=== PATIENT | female | born 1990 | race Caucasian/White ===

== ENCOUNTER 2017-02-21 15:01 | Emergency (ER) | payer MEDICAID ==
[~2017-02-21] VITALS: Ht 165.1 cm; Wt 110.0 kg
[~2017-02-21 15:01] MED LIST: METR500T10 PO; MIREIUD I-UTERINE
[2017-02-21 15:16] VITALS: BP 127/68; PULSE 91; RESP 18; TEMP 100.3; O2SAT 100
[2017-02-21] MEDS ORDERED: SODIUM CHLOR 0.9% 1000 ML INJ 1,000 ML IV ONE ×2 (16:21→19:00)
--- NOTE | 2017-02-21 16:29 | PD ---
HPI Chief Complaint: Headache Time Seen by Provider: 16:15 Travel History International Travel<30 days: No Contact w/Intl Traveler<30days: No Traveled to known affect area: No History of Present Illness HPI Patient is a 26-year-old female presents emergency department for "migraine headache." Patient states she's never had a headache like this before. States she's been running around working feverishly according to mom. Denies any sore throat denies any abdominal pain chest pain cough sneezing. Patient states she has had some mild chills. Denies any visual changes focalized weakness. Denies any foreign travel. Denies a history of HIV or diabetes. States symptoms been going on 6 morning, severe and gradually worsening PFSH Past Medical History Hx Anticoagulant Therapy: No Diabetes: No Diminished Hearing: No ?: Not LMP: 02/11/17 Social History Alcohol Use: Yes (OCC) Tobacco Use: No Substance Use: No Allergies-Medications (Allergen,Severity, Reaction): Coded Allergies: ciprofloxacin (Verified Allergy, Severe, 02/21/17) Reported Meds & Prescriptions Reported Meds & Active Scripts Active Imitrex (Sumatriptan Succinate) 50 Mg Tab 50 Mg PO DAILY PRN If a satisfactory response has not been obtained at 2 hours, a second dose may be administered Fioricet (Vslfdlxerh-Bvmzwrcldmudp-Gkzqyare) 50-300-40 Mg Cap 1-2 Cap PO Q6H PRN 10 Days Reported Mirena (Levonorgestrel (Iud)) 20 Mcg/24 Hr Iud 52 Mg I-UTERINE ONCE Review of Systems Except as stated in HPI: all other systems reviewed are Neg Physical Exam Narrative GENERAL: Well-developed well-nourished, morbidly obese in no obvious distress but in minimal discomfort. SKIN: Focused skin assessment warm/dry. HEAD: Atraumatic. Normocephalic. EYES: Pupils equal and round. No scleral icterus. No injection or drainage. No papilledema but was limited funduscopy. ENT: No nasal bleeding or discharge. Mucous membranes pink and moist. NECK: Trachea midline. No JVD. Kernig's and Brudzinski signs negative. Full nontender range of motion of her neck. CARDIOVASCULAR: Regular rate and rhythm. No murmur appreciated. RESPIRATORY: No accessory muscle use. Clear to auscultation. Breath sounds equal bilaterally. GASTROINTESTINAL: Abdomen soft, non-tender, nondistended. Hepatic and splenic margins not palpable. MUSCULOSKELETAL: No obvious deformities. No clubbing. No cyanosis. No edema. NEUROLOGICAL: Awake and alert. Cranial nerves II through XII grossly intact and nonfocal, 5 out of 5 strength in all 4 extremity's. Cerebellar testing negative. A relates even narrow based gait. PSYCHIATRIC: Appropriate mood and affect; insight and judgment normal. Data Data Last Documented VS Vital Signs Date Time Temp Pulse Resp B/P (MAP) Pulse Ox O2 Delivery O2 Flow Rate FiO2 02/21/17 19:15 87 16 134/72 (92) 98 02/21/17 17:46 100.1 02/21/17 17:27 Room Air Orders Orders Complete Blood Count With Diff (02/21/17 16:21) Comprehensive Metabolic Panel (02/21/17 16:21) Westergren Sedimentation Rate (02/21/17 16:21) C-Reactive Protein (Crp) (02/21/17 16:21) Ct Brain W/O Iv Contrast(Rout) (02/21/17 16:21) Ecg Monitoring (02/21/17 16:21) Iv Access Insert/Monitor (02/21/17 16:21) Oximetry (02/21/17 16:21) Sodium Chloride 0.9% Flush (Ns Flush) (02/21/17 16:30) Acetaminophen (Tylenol) (02/21/17 16:30) Diphenhydramine Inj (Benadryl Inj) (02/21/17 16:30) Metoclopramide Inj (Reglan Inj) (02/21/17 16:30) Sodium Chlor 0.9% 1000 Ml Inj (Ns 1000 M (02/21/17 16:21) Influenzae A/B Antigen (02/21/17 16:56) Group A Rapid Strep Screen (02/21/17 16:56) Ed Urine Pregnancytest Poc (02/21/17 17:43) Strep Culture (Group A) (02/21/17 17:25) Wdud-Llohn-Evdx 325-50-40 Mg (Fioricet 3 (02/21/17 18:15) Sumatriptan Inj (Imitrex Inj) (02/21/17 18:15) Sodium Chlor 0.9% 1000 Ml Inj (Ns 1000 M (02/21/17 19:00) Labs Laboratory Tests Test 02/21/17 16:35 White Blood Count 9.6 TH/MM3 Red Blood Count 4.84 MIL/MM3 Hemoglobin 13.2 GM/DL Hematocrit 39.1 % Mean Corpuscular Volume 80.9 FL Mean Corpuscular Hemoglobin 27.2 PG Mean Corpuscular Hemoglobin Concent 33.6 % Red Cell Distribution Width 11.7 % Platelet Count 318 TH/MM3 Mean Platelet Volume 7.7 FL Neutrophils (%) (Auto) 82.2 % Lymphocytes (%) (Auto) 12.9 % Monocytes (%) (Auto) 4.3 % Eosinophils (%) (Auto) 0.4 % Basophils (%) (Auto) 0.2 % Neutrophils # (Auto) 8.0 TH/MM3 Lymphocytes # (Auto) 1.2 TH/MM3 Monocytes # (Auto) 0.4 TH/MM3 Eosinophils # (Auto) 0.0 TH/MM3 Basophils # (Auto) 0.0 TH/MM3 CBC Comment DIFF FINAL Differential Comment Erythrocyte Sedimentation Rate 17 mm/hr Blood Urea Nitrogen 10 MG/DL Creatinine 0.83 MG/DL Random Glucose 99 MG/DL Total Protein 7.5 GM/DL Albumin 3.6 GM/DL Calcium Level 8.8 MG/DL Alkaline Phosphatase 68 U/L Aspartate Amino Transf (AST/SGOT) 12 U/L Alanine Aminotransferase (ALT/SGPT) 18 U/L Total Bilirubin 0.4 MG/DL Sodium Level 139 MEQ/L Potassium Level 4.0 MEQ/L Chloride Level 104 MEQ/L Carbon Dioxide Level 27.5 MEQ/L Anion Gap 8 MEQ/L Estimat Glomerular Filtration Rate 83 ML/MIN C-Reactive Protein 1.50 MG/DL [facility] Medical Decision Making Medical Screen Exam Complete: Yes Emergency Medical Condition: Yes Differential Diagnosis Headache, viral illness, elevated temperature, meningitis is possible. Narrative Course Patient roomed emergency department, given Benadryl and Reglan initially this did provide some relief in her headache but not complete relief. Was given Imitrex and Fioricet and this had complete relief of her headache. Patient does not have any nuchal signs, appears well and is low risk for meningitis. Basic labs including ESR CRP CBC and CMP are reassuring. test negative. CT head negative. Discussed with the patient the my index of suspicion is quite low for meningitis however cannot completely exclude. I discussed with her the risks benefits competitions and alternatives of lumbar puncture at this time she elects to defer this. At this point my index is suspicion is of suspicion is so low that I do not think she warrants admission to the hospital nor treatment. I discussed symptomatic management home and returned ED criteria. Diagnosis Primary Impression: Headache Qualified Codes: R51 - Headache Referrals: [facility] Additional Instructions: Follow-up with her primary care physician or the [facility]. Med/Other Pt SpecificInfo: Prescription(s) given Scripts Sumatriptan (Imitrex) 50 Mg Tab 50 MG PO DAILY Y for MIGRAINE HEADACHE, #10 TAB 0 Refills If a satisfactory response has not been obtained at 2 hours, a second dose may be administered Prov: Jose Luis Cornejo MD 02/21/17 Lmljumxorl-Rnciwzxrrqogi-Xeywronj (Fioricet) 50-300-40 Mg Cap 1-2 CAP PO Q6H Y for HEADACHE for 10 Days, CAP 0 Refills Prov: Jose Luis Cornejo MD 02/21/17 Disposition: 01 DISCHARGE HOME Condition: Stable Jose Luis Cornejo MD Feb 21, 2017 16:28
[2017-02-21 16:30] VITALS: BP 121/68; PULSE 89; RESP 16; O2SAT 100
[2017-02-21] MEDS ORDERED: ACETAMINOPHEN 325 MG TAB PO ONE (16:30)
[2017-02-21] MEDS ORDERED: diphenhydrAMINE HCL 50 MG/ML VIAL IVP ONE (16:30)
[2017-02-21] MEDS ORDERED: METOCLOPRAMIDE HCL 10 MG/2 ML VIAL IVP ONE (16:30)
[2017-02-21] MEDS ORDERED: SODIUM CHLORIDE 0.9% FLUSH 10 ML FLUSH IVF PRN (16:30)
[2017-02-21 16:55] LABS: BASOPHIL % 0.2 % (0.0-2.0); EOSINOPHIL % 0.4 % (0.0-4.0); HEMATOCRIT 39.1 % (35.0-46.0); HEMO FLAGS DIFF FINAL; LYMPH % 12.9 % (9.0-44.0); LYMPHOCYTE # 1.2 TH/MM3 (1.0-4.8); MEAN CELL VOLUME 80.9 FL (80.0-100.0); MEAN CORPUSCULAR HEMOGLOBIN 27.2 PG (27.0-34.0); MEAN CORPUSCULAR HGB CONC 33.6 % (32.0-36.0); MONO % 4.3 % (0.0-8.0); NEUT % 82.2 % (16.0-70.0); PLATELET COUNT 318 TH/MM3 (150-450); RED BLOOD COUNT 4.84 MIL/MM3 (4.00-5.30); RED CELL DISTRIBUTION WIDTH 11.7 % (11.6-17.2); WHITE BLOOD COUNT 9.6 TH/MM3 (4.0-11.0)
--- NOTE | 2017-02-21 17:00 | RADRPT ---
EXAM DATE/TIME: 02/21/2017 16:47 [facility] COMPARISON: No previous studies available for comparison. INDICATIONS : Headache, weakness. RADIATION DOSE: 59.89 CTDIvol (mGy) MEDICAL HISTORY : None SURGICAL HISTORY : None. ENCOUNTER: Initial ACUITY: 2 days PAIN SCALE: 10/10 LOCATION: Bilateral cranial TECHNIQUE: Multiple contiguous axial images were obtained of the head. Using automated exposure control and adj ustment of the mA and/or kV according to patient size, radiation dose was kept as low as reasonably a chievable to obtain optimal diagnostic quality images. DICOM format image data is available electro nically for review and comparison. FINDINGS: CEREBRUM: The ventricles are normal for age. No evidence of midline shift, mass lesion, hemorrhage or acute in farction. No extra-axial fluid collections are seen. POSTERIOR FOSSA: The cerebellum and brainstem are intact. The 4th ventricle is midline. The cerebellopontine angle i s unremarkable. EXTRACRANIAL: The visualized portion of the orbits is intact. SKULL: The calvaria is intact. No evidence of skull fracture. CONCLUSION: Negative noncontrast CT brain. Quintin Shah MD on February 21, 2017 at 16:58 Board Certified Radiologist. This report was verified electronically.
[2017-02-21 17:06] LABS: CHLORIDE 104 MEQ/L (98-107); SODIUM (NA) 139 MEQ/L (136-145)
[2017-02-21 17:11] LABS: ANION GAP 8 MEQ/L (5-15); BICARBONATE 27.5 MEQ/L (21.0-32.0); BLOOD UREA NITROGEN 10 MG/DL (7-18)
[2017-02-21 17:14] LABS: ALT (GPT) 18 U/L (10-53); AST (GOT) 12 U/L (15-37); GLOMERULAR FILTRATION RATE 83 ML/MIN (>89)
[2017-02-21 17:15] LABS: TOTAL BILIRUBIN ADULT 0.4 MG/DL (0.2-1.0)
[2017-02-21 17:17] LABS: ALKALINE PHOSPHATASE 68 U/L (45-117)
[2017-02-21 17:20] VITALS: RESP 16; O2SAT 100
[2017-02-21 17:27] VITALS: BP 117/65; PULSE 95; RESP 16; O2SAT 100
[2017-02-21 17:46] VITALS: TEMP 100.1
[2017-02-21] MEDS ORDERED: ACETAMIN 325 MG/BUTALBITAL 50 MG/CAFFEINE 40 MG TAB PO ONE (18:15)
[2017-02-21] MEDS ORDERED: SUMAtriptan INJ 6 MG/0.5 ML VIAL SQ ONE (18:15)
[2017-02-21] MEDS ORDERED: BUTA1CAP PO (19:06)
[2017-02-21] MEDS ORDERED: IMIT50TA PO (19:14)
[2017-02-21 19:15] VITALS: BP 134/72
== END 2017-02-21 19:24 | disposition home or self-care (01) ==
LOC: PHED 15:01
DX: R51 Headache (principal); R68.83 Chills (without fever)
CPT/HCPCS: 70450; 80053; 84703; 85025; 85652; 86140; 87081; 87804; 87880; 96361; 96372; 96374; 96375; 99285; J1200; J2765; J3030; J7030

== ENCOUNTER 2017-05-03 13:20 | Emergency (ER) | payer MEDICAID ==
[~2017-05-03] VITALS: Ht 165.1 cm; Wt 108.9 kg
[~2017-05-03 13:20] MED LIST changes: -METR500T10 PO; +NUVAMIS VAGINAL
[2017-05-03 13:28] VITALS: BP 156/68; PULSE 86; RESP 16; TEMP 99; O2SAT 99
--- NOTE | 2017-05-03 13:49 | PD ---
HPI Chief Complaint: Pain Medicine Physician Problem/Complaint Time Seen by Provider: 13:47 Travel History International Travel<30 days: No Contact w/Intl Traveler<30days: No Traveled to known affect area: No History of Present Illness HPI Patient presents with complaints of vaginal bleeding and lower pelvic pain. Reports removal of an IUD on Thursday without appropriate instrumentation per patient. Cramping and bleeding started on Thursday. Reports PCP who requested she come to the emergency room for ultrasound. PFS Past Medical History Medical History: Denies Significant Hx Hx Anticoagulant Therapy: No Diabetes: No Diminished Hearing: No Immunizations Current: Yes ?: Not LMP: mirena removed thursday Past Surgical History Surgical History: No Previous Surgery Social History Alcohol Use: Yes (OCC) Tobacco Use: No (NEVER) Substance Use: No Allergies-Medications (Allergen,Severity, Reaction): Coded Allergies: ciprofloxacin (Verified Allergy, Severe, 05/03/17) Reported Meds & Prescriptions Reported Meds & Active Scripts Active Nuvaring Vaginal Insert (Etonogestrel-Ethinyl Estradiol Vaginal Insert) 0.120- 0.015 Mg/24 Hr Vagring 1 Applic VAGINAL DIRECTED Review of Systems General / Constitutional: No: Fever Eyes: No: Visual changes HENT: No: Headaches Cardiovascular: No: Chest Pain or Discomfort Respiratory: No: Shortness of Breath Gastrointestinal: No: Abdominal Pain Genitourinary: Positive: Vaginal Bleeding, No: Dysuria Musculoskeletal: No: Pain Skin: No Rash Neurologic: No: Weakness Psychiatric: No: Depression Endocrine: No: Polydipsia Hematologic/Lymphatic: No: Easy Bruising Physical Exam Narrative GENERAL: Well-nourished, well-developed patient. SKIN: Focused skin assessment warm/dry. HEAD: Normocephalic. EYES: No scleral icterus. No injection or drainage. NECK: Supple, trachea midline. No JVD or lymphadenopathy. CARDIOVASCULAR: Regular rate and rhythm without murmurs, gallops, or rubs. RESPIRATORY: Breath sounds equal bilaterally. No accessory muscle use. GASTROINTESTINAL: Abdomen soft, non-tender, nondistended. MUSCULOSKELETAL: No cyanosis, or edema. BACK: Nontender without obvious deformity. No CVA tenderness. Pelvic exam revealed vaginal mucosa pink moist and healthy in appearance, cervix visualized and bleeding is coming from the os, bleeding was light Data Data Last Documented VS Vital Signs Date Time Temp Pulse Resp B/P (MAP) Pulse Ox O2 Delivery O2 Flow Rate FiO2 05/03/17 15:30 16 05/03/17 13:28 99.0 86 156/68 (97) 99 Orders Orders Us Pelvis Comp W Doppler (05/03/17 ) MDM Medical Decision Making Medical Screen Exam Complete: Yes Emergency Medical Condition: Yes Differential Diagnosis Uterine trauma, retained uterine products, uterine contraction, endometriosis Narrative Course Assessment and plan discussed with mother and daughter at bedside. Last 72 hours Impressions Pelvis Ultrasound 05/03/17 0000 Signed Impressions: Service Date/Time: Wednesday, May 03, 2017 14:55 - CONCLUSION: Minimal free fluid. The uterus and ovaries appear normal. No IUP is seen. Jayant Adair MD Diagnosis Primary Impression: DUB (dysfunctional uterine bleeding) Patient Instructions: General Instructions Additional Instructions: Warm heat for cramping, Motrin or Tylenol for pain, follow-up with PCP/LPN CMA, return to emergency with any onset of new symptoms. Med/Other Pt SpecificInfo: No Meds Exist/No RX given Disposition: 01 DISCHARGE HOME Condition: Good Saroj Mcmullen MD May 03, 2017 13:49
--- NOTE | 2017-05-03 16:37 | RADRPT ---
EXAM DATE/TIME: 05/03/2017 14:55 [facility] COMPARISON: No previous studies available for comparison. INDICATIONS : Pelvic pain and bleeding. MEDICAL HISTORY : Irritable bowel syndrome as child. Anemia. Urinary tract infection. SURGICAL HISTORY : None. ENCOUNTER: Initial ACUITY: 1 day PAIN SCORE: 4/10 LOCATION: Bilateral pelvis MEASUREMENTS: UTERUS: 9.7 x 6.4 x 5.1 cm ENDOMETRIAL STRIPE: 2 mm RIGHT OVARY: 2.8 x 2.5 x 2.1 cm LEFT OVARY: 2.9 x 1.7 x 1.6 cm FINDINGS: UTERUS: The myometrium has homogeneous echotexture without mass. RIGHT OVARY: Ovary contains no mass or significant cystic lesion. Arterial flow is seen in the ovary. LEFT OVARY: Ovary contains no mass or significant cystic lesion. Arterial flow is seen in the ovary. MISCELLANEOUS: There is a minimal amount of free fluid seen. CONCLUSION: Minimal free fluid. The uterus and ovaries appear normal. No IUP is seen. Jayant Adair MD on May 03, 2017 at 16:30 Board Certified Radiologist. This report was verified electronically.
[2017-05-03 16:59] VITALS: BP 124/70
[2017-05-05] MEDS ORDERED: METR1TAB76 PO (09:35)
[2017-05-05] MEDS ORDERED: DIFL150T PO (09:35)
== END 2017-05-03 17:08 | disposition home or self-care (01) ==
LOC: PHED 13:20
DX: N93.8 Other specified abnormal uterine and vaginal bleeding (principal); Z72.89 Other problems related to lifestyle
CPT/HCPCS: 76856; 93975; 99284

== ENCOUNTER 2017-10-21 15:36 | Emergency (ER) | payer MEDICAID, OTHER ==
[~2017-10-21] VITALS: Ht 165.1 cm; Wt 111.6 kg
[~2017-10-21 15:36] MED LIST changes: +DIFL150T PO; +METR1TAB76 PO; -MIREIUD I-UTERINE
[2017-10-21 15:41] VITALS: BP 135/69; PULSE 104; RESP 18; TEMP 99.6; O2SAT 96
--- NOTE | 2017-10-21 16:26 | PD ---
HPI Chief Complaint: GI Complaint Time Seen by Provider: 16:13 Travel History International Travel<30 days: No Contact w/Intl Traveler<30days: No Traveled to known affect area: No History of Present Illness HPI This 26-year-old female says she been sick for the last 4 days. She has been having vomiting and diarrhea. She feels bloated at times. She says there is no chance of . She has been having very watery stool. This illness started 2 days after she finished a course of Augmentin which she had taken before perforated eardrum. There has been no travel. PFSH Past Medical History Hx Anticoagulant Therapy: No Diabetes: No Diminished Hearing: No Immunizations Current: Yes ?: Not LMP: NUVA RING-NO CYCLE Social History Alcohol Use: Yes (OCC) Tobacco Use: No (NEVER) Substance Use: No Allergies-Medications (Allergen,Severity, Reaction): Coded Allergies: ciprofloxacin (Verified Allergy, Severe, 10/21/17) Reported Meds & Prescriptions Reported Meds & Active Scripts Active Diflucan (Fluconazole) 150 Mg Tab 150 Mg PO ONCE take one tablet after finishing course of flagyl, may repeat dose in 3 days if symptoms persist Metronidazole 500 Mg Tab 500 Mg PO BID Nuvaring Vaginal Insert (Etonogestrel-Ethinyl Estradiol Vaginal Insert) 0.120- 0.015 Mg/24 Hr Vagring 1 Applic VAGINAL DIRECTED Review of Systems General / Constitutional: Positive: Chills, No: Fever Eyes: No: Diploplia, Blurred Vision HENT: No: Headaches, Vertigo Cardiovascular: No: Chest Pain or Discomfort, Palpitations Respiratory: No: Cough, Shortness of Breath Gastrointestinal: Positive: Nausea, Vomiting, Diarrhea Genitourinary: No: Urgency, Frequency Musculoskeletal: No: Myalgias, Arthralgias Skin: No Rash, No Itching Neurologic: Positive: Weakness Hematologic/Lymphatic: No: Easy Bruising Physical Exam Narrative GENERAL: Well-developed female SKIN: Focused skin assessment warm/dry. HEAD: Atraumatic. Normocephalic. EYES: Pupils equal and round. No scleral icterus. No injection or drainage. ENT: No nasal bleeding or discharge. Mucous membranes pink and moist. NECK: Trachea midline. No JVD. CARDIOVASCULAR: Regular rate and rhythm. No murmur appreciated. RESPIRATORY: No accessory muscle use. Clear to auscultation. Breath sounds equal bilaterally. GASTROINTESTINAL: Abdomen soft, non-tender, nondistended. Hepatic and splenic margins not palpable. MUSCULOSKELETAL: No obvious deformities. No clubbing. No cyanosis. No edema. NEUROLOGICAL: Awake and alert. No obvious cranial nerve deficits. Motor grossly within normal limits. Normal speech. PSYCHIATRIC: Appropriate mood and affect; insight and judgment normal. Data Data Last Documented VS Vital Signs Date Time Temp Pulse Resp B/P (MAP) Pulse Ox O2 Delivery O2 Flow Rate FiO2 10/21/17 15:41 99.6 104 18 135/69 (91) 96 Orders Orders Complete Blood Count With Diff (10/21/17 16:23) Comprehensive Metabolic Panel (10/21/17 16:23) Enteric Path (Stool) (10/21/17 16:23) C Diff Toxin Pcr (10/21/17 16:23) Sodium Chlor 0.9% 1000 Ml Inj (Ns 1000 M (10/21/17 16:30) Sodium Chlor 0.9% 1000 Ml Inj (Ns 1000 M (10/21/17 16:30) Ondansetron Inj (Zofran Inj) (10/21/17 16:30) Labs Laboratory Tests Test 10/21/17 16:30 White Blood Count 8.5 TH/MM3 Red Blood Count 4.59 MIL/MM3 Hemoglobin 12.4 GM/DL Hematocrit 36.9 % Mean Corpuscular Volume 80.4 FL Mean Corpuscular Hemoglobin 27.0 PG Mean Corpuscular Hemoglobin Concent 33.6 % Red Cell Distribution Width 11.7 % Platelet Count 327 TH/MM3 Mean Platelet Volume 7.7 FL Neutrophils (%) (Auto) 69.6 % Lymphocytes (%) (Auto) 22.2 % Monocytes (%) (Auto) 5.7 % Eosinophils (%) (Auto) 2.3 % Basophils (%) (Auto) 0.2 % Neutrophils # (Auto) 5.9 TH/MM3 Lymphocytes # (Auto) 1.9 TH/MM3 Monocytes # (Auto) 0.5 TH/MM3 Eosinophils # (Auto) 0.2 TH/MM3 Basophils # (Auto) 0.0 TH/MM3 CBC Comment DIFF FINAL Differential Comment Blood Urea Nitrogen 7 MG/DL Creatinine 0.74 MG/DL Random Glucose 92 MG/DL Total Protein 6.9 GM/DL Albumin 2.8 GM/DL Calcium Level 8.2 MG/DL Alkaline Phosphatase 60 U/L Aspartate Amino Transf (AST/SGOT) 10 U/L Alanine Aminotransferase (ALT/SGPT) 15 U/L Total Bilirubin 0.2 MG/DL Sodium Level 142 MEQ/L Potassium Level 3.5 MEQ/L Chloride Level 109 MEQ/L Carbon Dioxide Level 26.1 MEQ/L Anion Gap 7 MEQ/L Estimat Glomerular Filtration Rate 95 ML/MIN MDM Medical Decision Making Medical Screen Exam Complete: Yes Emergency Medical Condition: Yes Medical Record Reviewed: Yes Differential Diagnosis Differential includes enteritis, C. difficile, gastroenteritis Narrative Course White count is 8000. Patient has been sick for 4-5 days we will initiate a trial of Flagyl. She will also be given Zofran for nausea. She is stable for discharge Diagnosis Primary Impression: Enteritis Scripts Ondansetron Odt (Zofran Odt) 4 Mg Tab 4 MG SL Q6HR Y for Nausea/Vomiting, #10 TAB 0 Refills Prov: Robert Mcclelland MD 10/21/17 Metronidazole (Flagyl) 500 Mg Tab 500 MG PO TID for Infection for 7 Days, TAB 0 Refills Prov: Robert Mcclelland MD 10/21/17 Disposition: DISCHARGE HOME Condition: Stable Robert Mcclelland MD October 21, 2017 16:26
[2017-10-21] MEDS ORDERED: ONDANSETRON HCL 4 MG/2 ML VIAL IV PUSH ONE (16:30)
[2017-10-21] MEDS ORDERED: SODIUM CHLOR 0.9% 1000 ML INJ 1,000 ML IV ONE ×2 (16:30)
[2017-10-21 16:51] LABS: AUTOMATED NEUTROPHIL # 5.9 TH/MM3 (1.8-7.7); BASOPHIL % 0.2 % (0.0-2.0); EOSINOPHIL # 0.2 TH/MM3 (0-0.4); EOSINOPHIL % 2.3 % (0.0-4.0); HEMATOCRIT 36.9 % (35.0-46.0); HEMOGLOBIN 12.4 GM/DL (11.6-15.3); LYMPH % 22.2 % (9.0-44.0); LYMPHOCYTE # 1.9 TH/MM3 (1.0-4.8); MEAN CELL VOLUME 80.4 FL (80.0-100.0); MEAN CORPUSCULAR HGB CONC 33.6 % (32.0-36.0); MEAN PLATELET VOLUME 7.7 FL (7.0-11.0); MONO % 5.7 % (0.0-8.0); MONOCYTE # 0.5 TH/MM3 (0-0.9); NEUT % 69.6 % (16.0-70.0); PLATELET COUNT 327 TH/MM3 (150-450); RED BLOOD COUNT 4.59 MIL/MM3 (4.00-5.30); RED CELL DISTRIBUTION WIDTH 11.7 % (11.6-17.2); WHITE BLOOD COUNT 8.5 TH/MM3 (4.0-11.0)
[2017-10-21 17:04] LABS: CHLORIDE 109 MEQ/L (98-107); SODIUM (NA) 142 MEQ/L (136-145)
[2017-10-21 17:06] LABS: CALCIUM 8.2 MG/DL (8.5-10.1)
[2017-10-21 17:07] LABS: ALBUMIN 2.8 GM/DL (3.4-5.0); BICARBONATE 26.1 MEQ/L (21.0-32.0); BLOOD UREA NITROGEN 7 MG/DL (7-18); GLUCOSE,RANDOM 92 MG/DL (74-106)
[2017-10-21 17:10] LABS: ALT (GPT) 15 U/L (10-53); AST (GOT) 10 U/L (15-37); CREATININE 0.74 MG/DL (0.50-1.00); GLOMERULAR FILTRATION RATE 95 ML/MIN (>89)
[2017-10-21 17:12] LABS: TOTAL BILIRUBIN ADULT 0.2 MG/DL (0.2-1.0); TOTAL PROTEIN 6.9 GM/DL (6.4-8.2)
[2017-10-21 17:13] LABS: ALKALINE PHOSPHATASE 60 U/L (45-117)
[2017-10-21] MEDS ORDERED: METR-1 PO (17:47)
[2017-10-21] MEDS ORDERED: ZOFR4TAB3 SL (17:47)
[2017-10-21 18:40] VITALS: BP 120/65
== END 2017-10-21 18:35 | disposition home or self-care (01) ==
LOC: PHED 15:36
DX: K52.9 Noninfective gastroenteritis and colitis, unspecified (principal); Z88.1 Allergy status to other antibiotic agents; Z79.899 Other long term (current) drug therapy
CPT/HCPCS: 80053; 85025; 96361; 96374; 99284; J2405; J7030